=== PATIENT | female | born 1995 | race Caucasian/White ===

== ENCOUNTER 2018-12-18 12:10 | Outpatient (CLI) | payer MEDICAID ==
[2018-12-18 19:05] LABS: HCG,QUALITATIVE BLOOD NEGATIVE
== END 2018-12-18 12:20 | disposition home or self-care (01) ==
LOC: LAB.N 12:10
PROVIDERS: ATTEND Physician Assistant Medical
DX: N92.1 Excessive and frequent menstruation with irregular cycle (principal)
CPT/HCPCS: 36415; 84703

== ENCOUNTER 2019-11-01 19:49 | Emergency (ER) | payer OTHER, MEDICAID ==
--- NOTE | 2019-11-01 21:06 | ED Physician Documentation ---
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 Her primary complaint is her left ankle pain. She is able to ambulate but reports that she twisted her ankle she is also complaining of left shoulder pain and lower back pain and right wrist pain she is right-hand dominant. She denies hitting her head or any loss of consciousness. Denies any syncopal episodes. Review of Systems Constitutional: reports: Reviewed and negative Eyes: reports: Reviewed and negative Ears: reports: Reviewed and negative Nose: reports: Reviewed and negative Throat: reports: Reviewed and negative Cardiac: reports: Reviewed and negative Respiratory: reports: Reviewed and negative GI: reports: Reviewed and negative : reports: Reviewed and negative Skin: reports: Reviewed and negative Musculoskeletal: reports: Other (Left ankle pain left shoulder pain lower back pain right wrist pain) Neurologic: reports: Reviewed and negative Psychiatric: reports: Reviewed and negative Endocrine: reports: Reviewed and negative Immunocompromised: reports: Reviewed and negative PD PAST MEDICAL HISTORY - Past Medical History Past Medical History: Yes Respiratory: Asthma Psych: Anxiety - Past Surgical History Past Surgical History: No - Allergies Allergies/Adverse Reactions: Allergies Allergy/AdvReac Type Severity Reaction Status Date / Time No Known Drug Allergies Allergy Verified 11/01/19 20:01 - Social History Does the pt smoke?: Yes Smoking Status: Current every day smoker Does the pt drink ETOH?: No Does the pt have substance abuse?: No - Immunizations Immunizations are current?: Yes - POLST Patient has POLST: No PD ED PE NORMAL - Vitals Vital signs reviewed: Yes - General General: Alert and oriented X 3, No acute distress, Well developed/nourished - HEENT HEENT: PERRL, Other (Atraumatic, no septal hematoma no acute missing teeth no raccoon eyes no lobo sign no signs of trauma.) - Neck Neck: Supple, no meningeal sign - Cardiac Cardiac: RRR, No murmur, Strong equal pulses - Respiratory Respiratory: No respiratory distress, Clear bilaterally - Abdomen Abdomen: Normal bowel sounds, Soft, Non tender, Non distended - Back Back: No spinal TTP - Derm Derm: Warm and dry, No rash - Extremities Extremities: No deformity, Normal ROM s pain, No edema, No calf tenderness / cord - Neuro Neuro: Alert and oriented X 3, 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 Negative calf squeeze, compartments are soft sensations intact light touch palpable DP and PT pulses able to ambulate with a normal gait there is some mild tenderness diffusely over the left shoulder but the left shoulder is without any deformity radian median ulnar motor and sensory exam are intact compartments are soft strength is 5 out of 5 bilateral upper and lower extremities full remains full range of motion of the left shoulder and passive and active range of motion of the left shoulder and in abduction abduction internal and external rotation as well as flexion extension. There is mild lumbar paraspinal tenderness palpation but no midline tenderness palpation of the cervical thoracic lumbar sacral spine. The right wrist is mildly tender but no diffuse deformity no obvious deformities radian, median ulnar motor and sensory exam are intact no pain over the anatomic snuffbox full range of motion on passive and active range of motion of the right wrist in flexion extension of the wrist radian, median ulnar motor and sensory exam are intact. Compartments are soft throughout neurovascularly intact throughout sensations intact light touch throughout. Results - Vitals Vitals: Vital Signs - 24 hr 11/01/19 11/01/19 19:58 22:48 Temperature 36.8 C Heart Rate 98 64 Respiratory 18 18 Rate Blood Pressure 137/79 H 136/88 H O2 Saturation 99 98 Oxygen O2 Source Room air PD MEDICAL DECISION MAKING - ED course Complexity details: considered differential (Left ankle sprain. No emergent injuries.) ED course: X-rays of the left ankle and left foot show no obvious fracture dislocation I explained this to the patient if she continues to have a worsening pain or is not improving she should have repeat x-rays and 1 week from now or CT scan. This was explained to the patient and she states she will follow-up with her primary care provider on Sunday for recheck she should rest ice compress and elevate take Tylenol or ibuprofen as needed. Departure - Departure Disposition: 01 Home, Self Care Clinical Impression: Left ankle sprain Qualifiers: Encounter type: initial encounter Involved ligament of ankle: unspecified ligament Qualified Code(s): S93.402A - Sprain of unspecified ligament of left ankle, initial encounter Condition: Stable Instructions: ED Sprain Ankle Follow-Up: your, doctor [Other] Comments: Please follow-up with your primary care provider on Sunday for recheck. Ice as needed.Take either Tylenol or ibuprofen as needed. Discharge Date/Time: 11/01/19 22:49
--- NOTE | 2019-11-01 21:52 | XRAY Report ---
PROCEDURE: Ankle 3 View LT INDICATIONS: left ankle injury TECHNIQUE: 3 views of the ankle were acquired. COMPARISON: Correlation is made with the accompanying foot plain films. FINDINGS: Bones: No fractures or dislocations. Ankle mortise is normally aligned. No suspicious bony lesions . An accessory ossicle is seen, an os trigonum. Plantar and Achilles calcaneal spurs are seen. The talar dome demonstrates an unremarkable appearance. Soft tissues: No tibiotalar joint effusion. Achilles tendon appears normal. IMPRESSION: No acute plain film abnormality is seen. Note is made of plantar and Achilles calcaneal spurs. Reviewed by: Jonathan Pearl MD on 11/01/2019 8:50 PM [facility] Approved by: Jonathan Pearl MD on 11/01/2019 8:50 PM [facility] Station ID: [id number]
--- NOTE | 2019-11-01 21:54 | XRAY Report ---
PROCEDURE: Foot 3 View LT INDICATIONS: left foot injury TECHNIQUE: 3 views of the foot were acquired. COMPARISON: Correlation is made with the accompanying ankle plain films. FINDINGS: Bones: No fractures or dislocations. No suspicious bony lesions. An accessory ossicle is seen, an os trigonum. Plantar and Achilles calcaneal spurs are seen. A minimal hallux valgus deformity is seen . Soft tissues: No tibiotalar joint effusion. Achilles tendon appears normal. IMPRESSION: No acute fractures are seen by plain film. Minimal hallux valgus deformity. Please correlate with focal tenderness. If there is point tenderness (or other clinical concern for a fracture not seen on these plain films) then please consider a dedicated CT study or a short term fo llow up plain film series for further evaluation. Plantar and Achilles calcaneal spurs can be seen. Reviewed by: Jonathan Pearl MD on 11/01/2019 8:52 PM [facility] Approved by: Jonathan Pearl MD on 11/01/2019 8:52 PM [facility] Station ID: [id number]
[2019-11-01 22:49] VITALS: BP 136/88
== END 2019-11-01 22:49 | disposition home or self-care (01) ==
LOC: ED 19:49
DX: S93.402A Sprain of unspecified ligament of left ankle, initial encounter (principal); X50.1XXA Overexertion from prolonged static or awkward postures, initial encounter; W01.0XXA Fall on same level from slipping, tripping and stumbling without subsequent striking against object, initial encounter; Y92.511 Restaurant or cafe as the place of occurrence of the external cause; Y99.0 Civilian activity done for income or pay; F17.200 Nicotine dependence, unspecified, uncomplicated
CPT/HCPCS: 1040M; 73610; 73630; 99282; 99283

== ENCOUNTER 2019-11-10 13:45 | Outpatient (CLI) | payer OTHER, MEDICAID ==
--- NOTE | 2019-11-10 17:50 | XRAY Report ---
PROCEDURE: Shoulder 3 View LT INDICATIONS: LT SHOULDER JOINT PAIN TECHNIQUE: 3 views of the shoulder were acquired. COMPARISON: None. FINDINGS: Bones: No fractures or dislocations. No suspicious bony lesions. Visualized ribs appear intact. Soft tissues: No suspicious soft tissue calcifications. IMPRESSION: No fracture. No osseous lesion. If there is continued clinical concern for pathology, then repeat milka in film radiographs (7-10 days) or advanced imaging (CT, MR, bone scan) should be considered for furt her evaluation. Reviewed by: Niyah Sauer MD, PhD on 11/10/2019 5:48 PM PDT Approved by: Niyah Sauer MD, PhD on 11/10/2019 5:48 PM PDT Station ID: [id number]
== END 2019-11-10 13:46 | disposition home or self-care (01) ==
LOC: DI 13:45
PROVIDERS: ATTEND Family Medicine
DX: M25.512 Pain in left shoulder (principal)

== ENCOUNTER 2019-11-25 16:48 | Outpatient (CLI) | payer MEDICAID ==
[2019-11-25 18:52] LABS: PROLACTIN 15.47 ng/mL
[2019-11-25 19:14] LABS: FOLLICLE STIMULATING HORMONE 8.04 mIU/mL
[2019-11-25 19:15] LABS: LUTEINIZING HORMONE 8.11 mIU/mL
== END 2019-11-25 16:49 | disposition home or self-care (01) ==
LOC: LAB.WCP 16:48
PROVIDERS: ATTEND Nurse Practitioner Family
DX: N92.6 Irregular menstruation, unspecified (principal)
CPT/HCPCS: 36415; 83001; 83002; 84144; 84146; 84443

== ENCOUNTER 2020-09-26 13:57 | Emergency (ER) | payer MEDICAID ==
[2020-09-26 14:06] VITALS: BP 136/79
--- NOTE | 2020-09-26 14:09 | ED Physician Documentation ---
History of Present Illness - Stated complaint Stated Complaint: growth on rearend - Chief complaint Chief Complaint: General - History obtained from History obtained from: Patient - Additonal information Additional information: About a day of a painful lump on the rectum. She is never had anything like this before. Not constipated. No major health issues. Review of Systems Constitutional: reports: Reviewed and negative Eyes: reports: Reviewed and negative Ears: reports: Reviewed and negative Nose: reports: Reviewed and negative Throat: reports: Reviewed and negative PD PAST MEDICAL HISTORY - Past Medical History Respiratory: Asthma Psych: Anxiety - Past Surgical History Past Surgical History: No - Present Medications Home Medications: Ambulatory Orders Medication Instructions Recorded Confirmed Hydrocortisone [Anusol-Hc] 1 gm RC QID #30 gm 09/26/20 - Allergies Allergies/Adverse Reactions: Allergies Allergy/AdvReac Type Severity Reaction Status Date / Time No Known Drug Allergies Allergy Verified 09/26/20 14:06 - Social History Does the pt smoke?: Yes Smoking Status: Current every day smoker Does the pt drink ETOH?: No Does the pt have substance abuse?: No - Immunizations Immunizations are current?: Yes - POLST Patient has POLST: No PD ED PE NORMAL - Vitals Vital signs reviewed: Yes - General General: Alert and oriented X 3, No acute distress - Abdomen Abdomen: Normal bowel sounds, Soft, Non tender - Female Female : Other (Exam done with Gamaliel GREENWOOD present and chaperoning. On the left side she has an acutely thrombosed hemorrhoid.) Results - Vitals Vitals: Vital Signs - 24 hr 09/26/20 14:01 Temperature 36.5 C Heart Rate 70 Respiratory 15 Rate Blood Pressure 136/79 H O2 Saturation 99 Oxygen O2 Source Room air Procedures - General procedure General procedure: After verbal informed consent with specific discussion of discussion of risks and benefits including but not limited to bleeding and infection the rectum area was prepped with iodine and base of the thrombosed hemorrhoid was anesthetized with lidocaine and epinephrine, elliptical incision was made in the most fluctuant part of it and clot was expressed. Patient tolerated very well. Departure - Departure Disposition: 01 Home, Self Care Clinical Impression: Thrombosed hemorrhoids Condition: Good Record reviewed to determine appropriate education?: Yes Instructions: Sitz Bath, ED Hemorrhoids Follow-Up: Meir Boykin MD [Provider Admit Priv/Credential] - Prescriptions: Hydrocortisone [Anusol-Hc] 1 gm RC QID #30 gm Comments: Do sitz bath's at least 2-3 times a day as per the instructions enclosed. Return for new or worsening symptoms. Follow-up with the surgeon for recheck within the week, calling tomorrow for an appointment. Forms: Activity restrictions
[2020-09-26] MEDS ORDERED: LIDOCAINE 1%-EPI 1:100000 20 ML MDV SUBQ STA (14:21)
== END 2020-09-26 14:42 | disposition home or self-care (01) ==
LOC: ED 13:57
DX: K64.5 Perianal venous thrombosis (principal); F17.200 Nicotine dependence, unspecified, uncomplicated
CPT/HCPCS: 46083

== ENCOUNTER 2020-12-25 12:20 | Outpatient (CLI) | payer MEDICAID ==
--- NOTE | 2020-12-25 16:01 | XRAY Report ---
PROCEDURE: Chest 2 View X-Ray INDICATIONS: ACUTE UPPER RESP INFECTION TECHNIQUE: 2 view(s) of the chest. COMPARISON: None. FINDINGS: Surgical changes and devices: None. Lungs and pleura: No pleural effusions or pneumothorax. Lungs are clear. Mediastinum: Mediastinal contours are normal. Heart size is normal. Bones and chest wall: No suspicious bony abnormalities. Soft tissues appear unremarkable. IMPRESSION: Chest plain film study within normal limits, without focal infiltrates. Reviewed by: Jonathan Pearl MD on 12/25/2020 2:59 PM [facility] Approved by: Jonathan Pearl MD on 12/25/2020 2:59 PM [facility] Station ID: [id number]
== END 2020-12-25 12:21 ==
LOC: DI.N 12:20
PROVIDERS: ATTEND Nurse Practitioner
DX: J06.9 Acute upper respiratory infection, unspecified (principal); Z20.822 Contact with and (suspected) exposure to COVID-19

== ENCOUNTER 2020-12-26 09:25 | Emergency (ER) | payer MEDICAID ==
[2020-12-26 09:58] LABS: BASOPHILS # (AUTO) 0.1 10^3/uL (0.0-0.1); BASOPHILS % (AUTO) 0.5 %; EOSINOPHILS % (AUTO) 7.1 %; HCT - HEMATOCRIT 38.9 % (37.0-47.0); HGB - HEMOGLOBIN 13.1 g/dL (12.0-16.0); LYMPHOCYTES # (AUTO) 2.5 10^3/uL (1.5-3.5); LYMPHOCYTES % (AUTO) 18.5 %; MEAN CORPUSCULAR HEMOGLOBIN 29.8 pg (27.0-31.0); MEAN CORPUSCULAR HGB CONC 33.7 g/dL (32.0-36.0); MEAN CORPUSCULAR VOLUME 88.6 fL (81.0-99.0); MEAN PLATELET VOLUME 9.4 fL (7.9-10.8); MONOCYTES # (AUTO) 0.9 10^3/uL (0.0-1.0); MONOCYTES % (AUTO) 6.5 %; NEUTROPHILS % (AUTO) 66.7 %; PLT - PLATELET COUNT 330 10^3/uL (130-450); RED BLOOD COUNT 4.39 10^6/uL (4.20-5.40); RED CELL DISTRIBUTION WIDTH 13.5 % (12.0-15.0); WHITE BLOOD COUNT 13.4 x10^3/uL (4.8-10.8)
--- NOTE | 2020-12-26 10:08 | ED Physician Documentation ---
PD HPI ABD PAIN - Stated complaint Stated Complaint: ABD PX - Chief complaint Chief Complaint: Abd Pain - History obtained from History obtained from: Patient - History of Present Illness Timing - onset: Yesterday Timing - duration: Days (2) Timing - details: Intermittant Quality: Cramping, Aching, Pain Location: RLQ, Suprapubic Radiation: No: Right flank Improved by: No: Laying still Worsened by: No: Moving, Breathing, Palpation Associated symptoms: No: Fever, Nausea, Vomiting, Dysuria, Loss of appetite, Vaginal bleeding, Vaginal dc Similar symptoms before: Has not had sx before Recently seen: Not recently seen Review of Systems Constitutional: denies: Fever, Chills Nose: denies: Rhinorrhea / runny nose, Congestion Throat: denies: Sore throat Respiratory: denies: Cough GI: reports: Abdominal Pain, Nausea. denies: Vomiting, Diarrhea : reports: Other (not sexually active for several months). denies: Dysuria, Discharge, Vaginal bleeding, Missed period Endocrine: denies: Weight loss, Weight gain PD PAST MEDICAL HISTORY - Past Medical History Past Medical History: Yes Cardiovascular: None Respiratory: Asthma Neuro: None Endocrine/Autoimmune: None GI: None [employer]PORATE TRAVEL EXPERT: Ovarian cysts : None HEENT: None Psych: Anxiety Musculoskeletal: None Derm: None - Past Surgical History Past Surgical History: No - Present Medications Home Medications: Ambulatory Orders Medication Instructions Recorded Confirmed Albuterol Sulfate [Proair Hfa 1 - 2 puffs INH Q4H PRN 12/26/20 12/26/20 Inhaler] predniSONE [Deltasone] 40 mg PO DAILY 12/26/20 12/26/20 - Allergies Allergies/Adverse Reactions: Allergies Allergy/AdvReac Type Severity Reaction Status Date / Time No Known Drug Allergies Allergy Verified 12/26/20 09:28 - Social History Does the pt smoke?: No Smoking Status: Former smoker Does the pt drink ETOH?: No Does the pt have substance abuse?: No - Immunizations Immunizations are current?: Yes - POLST Patient has POLST: No PD ED PE NORMAL - Vitals Vital signs reviewed: Yes - General General: Alert and oriented X 3, No acute distress, Well developed/nourished - Neck Neck: Supple, no meningeal sign, No adenopathy - Cardiac Cardiac: RRR, No murmur - Respiratory Respiratory: Clear bilaterally - Abdomen Abdomen: Normal bowel sounds, Soft, Non distended, No organomegaly, Other (mild tender RLQ/suprapubic area without guarding nor percussion tender. No CVA tenderness. ) Results - Vitals Vitals: Vital Signs - 24 hr 12/26/20 12/26/20 12/26/20 09:29 10:07 12:00 Temperature 36.4 C L Heart Rate 72 86 93 Respiratory 18 18 17 Rate Blood Pressure 141/78 H 126/70 151/99 H O2 Saturation 98 98 100 Oxygen O2 Source Room air - Labs Labs: Laboratory Tests 12/26/20 12/26/20 12/26/20 09:50 09:50 10:36 WBC 13.4 H RBC 4.39 Hgb 13.1 Hct 38.9 MCV 88.6 MCH 29.8 MCHC 33.7 RDW 13.5 Plt Count 330 MPV 9.4 Neut # (Auto) 9.0 H Lymph # (Auto) 2.5 Ware # (Auto) 0.9 Eos # (Auto) 1.0 H Baso # (Auto) 0.1 Absolute Nucleated RBC 0.00 Nucleated RBC % 0.0 Sodium 139 Potassium 4.0 Chloride 108 Carbon Dioxide 22 Anion Gap 9.0 BUN 7 Creatinine 0.6 Estimated GFR (MDRD) 121 Glucose 97 Calcium 9.3 Total Bilirubin 0.4 AST 14 ALT 19 Alkaline Phosphatase 64 Total Protein 7.2 Albumin 3.4 Globulin 3.8 Albumin/Globulin Ratio 0.9 L Lipase 22 Urine Color YELLOW Urine Clarity CLEAR Urine pH 7.0 Ur Specific [place] 1.025 Urine Protein NEGATIVE Urine Glucose (UA) NEGATIVE Urine Ketones NEGATIVE Urine Occult Blood NEGATIVE Urine Nitrite NEGATIVE Urine Bilirubin NEGATIVE Urine Urobilinogen 0.2 (NORMAL) Ur Leukocyte Esterase NEGATIVE Ur Microscopic Review NOT INDICATED Urine Culture Comments NOT INDICATED Urine HCG, Qual POSITIVE - Rads (name of study) OB U/S Radiology: Prelim report reviewed (IUP 22 wks WEGA with good heart rate and movement. ), See rad report PD MEDICAL DECISION MAKING - ED course Complexity details: reviewed results (She is 22 wks . UA is good. U/S otherwise good. Consider round ligament pain on right. Clinically low suspicion for appendix at this point. ), re-evaluated patient, considered differential (consider ovarian cyst, ectopic, UTI, and also GI such as appendix though exam is low suspicion for that. ), d/w patient Departure - Departure Disposition: 01 Home, Self Care Clinical Impression: Lower abdominal pain Qualifiers: Weeks of gestation: 22 weeks Qualified Code(s): Z3A.22 - 22 weeks gestation of Condition: Stable Record reviewed to determine appropriate education?: Yes Instructions: ED Pelvic Pain Preg UKO 2 or 3 Tri Follow-Up: Claudia Marks MD [Provider Admit Priv/Credential] - Comments: Your ultrasound shows you are 22 weeks . Your urine test is clear without any signs of infection. The ultrasound did not show any ovarian prob lems. Consideration for your pain can be stretching of the ligaments of the uterus called round ligament pain. Clinically seems less likely to be appendicitis or such. Tylenol every 4-6 hours if needed for pains. Call the [facility] office to arrange a initial appointment for care. Stay well-hydrated. Return if worsening pain or associated fever, vomiting, bloody stools or diarrhea or other concerns. Discharge Date/Time: 12/26/20 12:11
[2020-12-26 10:10] LABS: ALBUMIN 3.4 g/dL (3.2-5.5); ALBUMIN/GLOBULIN RATIO 0.9 (1.0-2.2); BILIRUBIN,TOTAL 0.4 mg/dL (0.2-1.0); CALCIUM 9.3 mg/dL (8.5-10.3); CREATININE 0.6 mg/dL (0.4-1.0); TOTAL PROTEIN 7.2 g/dL (6.7-8.2)
[2020-12-26] MEDS ORDERED: KETOROLAC 30 MG/ML VIAL IVP STA (10:30)
[2020-12-26 10:50] LABS: BILIRUBIN,URINE NEGATIVE (NEGATIVE); GLUCOSE, URINE (UA) NEGATIVE (NEGATIVE); KETONES,URINE (UA) NEGATIVE (NEGATIVE); LEUKOCYTE ESTERASE, URINE NEGATIVE (NEGATIVE); NITRITE,URINE NEGATIVE (NEGATIVE); OCCULT BLOOD,URINE NEGATIVE (NEGATIVE); PROTEIN,URINE NEGATIVE (NEGATIVE); UROBILINOGEN,URINE 0.2 (NORMAL) E.U./dL (NORMAL)
[2020-12-26 10:51] LABS: CLARITY,URINE CLEAR (CLEAR); HCG UR QUAL POSITIVE
[2020-12-26] MEDS ORDERED: ACETAMINOPHEN 325 MG TABLET PO STA (12:01)
[2020-12-26 12:02] VITALS: BP 151/99
--- NOTE | 2020-12-26 12:25 | Ultrasound Report ---
PROCEDURE: OB F/U or Repeat INDICATIONS: +PREG TEST.RT PELVIC PX OUTSIDE/PRIOR DATING DATA: Last menstrual period (LMP): 12/14/2020 LMP-based estimated date of delivery (ALFONSO): 09/20/2021. TECHNIQUE: Real-time scanning was performed of the fetus, with image documentation and biometric measurements. Endovaginal scanning: No COMPARISON: None. FINDINGS: General: A single living intrauterine gestation is present. Presentation: Vertex Placenta: Placental position is left fundal, without previa. Amniotic fluid index: 15.7 cm heart rate: 158 beats per minute. Maternal cervical canal: 2.5 cm long; normal length is 2.5 cm or more. biometrics: Biparietal diameter: 53 mm; 22 weeks 0 days Head circumference: 195 mm; 21 weeks 5 days Abdominal circumference: 172 mm; 22 weeks 1 day Femur length: 39 mm; 22 weeks 4 days Estimated gestational age from initial scan: not applicable. Composite gestational age from present scan: 22 weeks 1 day Estimated weight and percentile: 488 g Measurement variability in biometric dating: +/- 10 days from 12-20 weeks gestation, +/- 2 weeks from 20-30 weeks gestation, +/- 3 weeks at 30 weeks gestation or more. Other: Not applicable. IMPRESSION: 1. Single living intrauterine gestation. Reviewed by: Carlos Edmondson MD on 12/26/2020 12:23 PM PDT Approved by: Carlos Edmondson MD on 12/26/2020 12:23 PM PDT Station ID: [id number]
== END 2020-12-26 12:11 | disposition home or self-care (01) ==
LOC: ED 09:25
DX: O26.892 Other specified pregnancy related conditions, second trimester (principal); R10.31 Right lower quadrant pain; Z3A.22 22 weeks gestation of pregnancy; Z87.891 Personal history of nicotine dependence
CPT/HCPCS: 36415; 76816; 80053; 81003; 81025; 83690; 85025; 96374; 99283; 99284; A9270; 81001; 87086

== ENCOUNTER → 2020-12-31 | Outpatient (CLI) | payer MEDICAID ==
[2020-12-31 17:29] LABS: BILIRUBIN,URINE NEGATIVE (NEGATIVE); GLUCOSE, URINE (UA) NEGATIVE (NEGATIVE); KETONES,URINE (UA) TRACE mg/dL (NEGATIVE); LEUKOCYTE ESTERASE, URINE NEGATIVE (NEGATIVE); NITRITE,URINE POSITIVE (NEGATIVE); OCCULT BLOOD,URINE NEGATIVE (NEGATIVE); PROTEIN,URINE NEGATIVE (NEGATIVE); UROBILINOGEN,URINE 0.2 (NORMAL) E.U./dL (NORMAL)
[2020-12-31 17:30] LABS: CLARITY,URINE HAZY (CLEAR)
[2020-12-31 17:45] LABS: BACTERIA,URINE Many /HPF (None Seen); CRYSTALS,URINE 11-25 Ca Oxalate /LPF; RBC,URINE 0-5 /HPF (0-5); SQUAMOUS EPITHELIAL CELL,UR FEW Squamous (<= Few); WBC,URINE 0-3 /HPF (0-5)
== END ==
LOC: LAB 08:00
PROVIDERS: ATTEND Obstetrics & Gynecology
DX: Z34.90 Encounter for supervision of normal pregnancy, unspecified, unspecified trimester (principal); Z36.89 Encounter for other specified antenatal screening
CPT/HCPCS: 81001; 87086; 87181

== ENCOUNTER 2021-01-03 16:24 | Outpatient (CLI) | payer MEDICAID ==
[2021-01-03 21:01] LABS: BASOPHILS # (AUTO) 0.1 10^3/uL (0.0-0.1); BASOPHILS % (AUTO) 0.3 %; EOSINOPHILS # (AUTO) 0.6 10^3/uL (0.0-0.7); EOSINOPHILS % (AUTO) 3.5 %; HCT - HEMATOCRIT 39.4 % (37.0-47.0); HGB - HEMOGLOBIN 12.9 g/dL (12.0-16.0); LYMPHOCYTES # (AUTO) 3.7 10^3/uL (1.5-3.5); LYMPHOCYTES % (AUTO) 23.7 %; MEAN CORPUSCULAR HEMOGLOBIN 29.5 pg (27.0-31.0); MEAN CORPUSCULAR HGB CONC 32.7 g/dL (32.0-36.0); MEAN PLATELET VOLUME 9.9 fL (7.9-10.8); MONOCYTES # (AUTO) 0.9 10^3/uL (0.0-1.0); MONOCYTES % (AUTO) 5.9 %; NEUTROPHILS # (AUTO) 10.2 10^3/uL (1.5-6.6); NEUTROPHILS % (AUTO) 65.6 %; PLT - PLATELET COUNT 424 10^3/uL (130-450); RED BLOOD COUNT 4.38 10^6/uL (4.20-5.40); RED CELL DISTRIBUTION WIDTH 13.3 % (12.0-15.0); WHITE BLOOD COUNT 15.6 x10^3/uL (4.8-10.8)
[2021-01-05 14:21] LABS: HIV AG/AB 4TH GEN NON-REACTIVE (NON-REACTIVE)
[2021-01-05 16:11] LABS: HEPATITIS B SURFACE ANTIGEN NON-REACTIVE (NON-REACTIVE)
[2021-01-05 16:12] LABS: HEPATITIS C ANTIBODY NON-REACTIVE (NON-REACTIVE)
== END 2021-01-03 16:25 | disposition home or self-care (01) ==
LOC: LAB.N 16:24
PROVIDERS: ATTEND Obstetrics & Gynecology
DX: Z34.90 Encounter for supervision of normal pregnancy, unspecified, unspecified trimester (principal); Z36.89 Encounter for other specified antenatal screening
CPT/HCPCS: 36415; 85025; 86592; 86762; 86787; 86803; 86850; 86900; 86901; 87340; 87389

== ENCOUNTER 2021-01-07 20:02 | Outpatient (CLI) | payer MEDICAID ==
--- NOTE | 2021-01-08 14:10 | Ultrasound Report ---
PROCEDURE: OB Detailed Eval INDICATIONS: SUPERVISION OF OUTSIDE/PRIOR DATING DATA: Last menstrual period (LMP): 12/14/2020. LMP-based estimated date of delivery (ALFONSO): 09/20/2021. First dating scan (date and location): 12/26/2020. Estimated date of delivery (ALFONSO) from first dating scan: 04/30/2021. The below data below was generated using the previous study generated ALFONSO of 04/30/2021 TECHNIQUE: Real-time scanning was performed of the fetus, with image documentation and biometric measurements. COMPARISON: 12/26/2020. FINDINGS: General: A single living intrauterine gestation is present. Presentation: Vertex Placenta: Placental position is fundal, without previa. Amniotic fluid index: 16.5 cm, normal for gestational age. Largest pocket measures 6.05 cm. heart rate: 153 beats per minute. Maternal cervical canal: 4.3 cm long; normal length is 2.5 cm or more. biometrics: Biparietal diameter: 5.53 cm, 22 weeks, 6 days Head circumference: 20.4 cm, 23 weeks, 0 days Abdominal circumference: 18.96 cm, 23 weeks, 5 days. Femur length: 4.09 cm, 22 weeks, 3 days. Estimated gestational age from initial scan: 23 weeks, 6 days. Composite gestational age from present scan: 23 weeks 0 day. Estimated weight and percentile: 593.2 g, 23.1%. Measurement variability in biometric dating: +/- 10 days from 12-20 weeks gestation, +/- 2 weeks from 20-30 weeks gestation, +/- 3 weeks at 30 weeks gestation or later. Anatomic survey: Neuro: Ventricles are normal at less than 10 mm. Cisterna magna is normal at 3-11 mm. Cerebellum i s normal in size and morphology. Nuchal skin fold: Normal at less than 6 mm between 14 and 20 weeks gestational age. Face: Nose and lips, facial profile are normal. Spine: No evidence for spina bifida. Heart: 4-chambered heart is present, with normal ventricular outflow tracts. Diaphragm: Diaphragm is intact. Stomach: Left-sided stomach is present. Kidneys: No hydronephrosis. Normal is less than 5 mm in 2nd trimester, less than 7 mm in 3rd trimester. Cord: 3 vessel cord has orthotopic insertion. Bladder: Normal in size. Extremities: All 4 extremities are visualized. IMPRESSION: 1. Single live intrauterine with fetus in vertex presentation. heart rate is 153 bpm. Normal amount of amniotic fluid. Normal growth. Estimated weight is at 23.1%. 2. Normal anatomic survey. Reviewed by: Doni Chen MD on 01/08/2021 2:09 PM PDT Approved by: Doni Chen MD on 01/08/2021 2:09 PM PDT Station ID: [id number]
== END 2021-01-07 20:03 | disposition home or self-care (01) ==
LOC: DI 20:02
PROVIDERS: ATTEND Obstetrics & Gynecology
DX: Z34.00 Encounter for supervision of normal first pregnancy, unspecified trimester (principal); Z36.89 Encounter for other specified antenatal screening

== ENCOUNTER 2021-01-31 16:00 | Outpatient (CLI) | payer MEDICAID | END 2021-01-31 16:01 | disposition home or self-care (01) | LOC: LAB.N 16:00 | PROVIDERS: ATTEND Obstetrics & Gynecology | DX: Z34.90 Encounter for supervision of normal pregnancy, unspecified, unspecified trimester (principal); Z36.89 Encounter for other specified antenatal screening; Z67.91 Unspecified blood type, Rh negative | CPT/HCPCS: 36415; 82950; 86850 ==

== ENCOUNTER 2021-04-05 08:00 | Outpatient (CLI) | payer MEDICAID | END 2021-04-05 23:59 | disposition home or self-care (01) | LOC: LAB.WC 08:00 | PROVIDERS: ATTEND Obstetrics & Gynecology | DX: Z34.90 Encounter for supervision of normal pregnancy, unspecified, unspecified trimester (principal); Z36.85 Encounter for antenatal screening for Streptococcus B | CPT/HCPCS: 87797 ==

== ENCOUNTER 2021-04-09 11:16 | Outpatient (CLI) | payer MEDICAID ==
--- NOTE | 2021-04-09 13:15 | Ultrasound Report ---
PROCEDURE: OB F/U or Repeat INDICATIONS: SUPERVISION NORMAL OUTSIDE/PRIOR DATING DATA: Last menstrual period (LMP): 12/14/2020. LMP-based estimated date of delivery (ALFONSO): 09/20/2021. First dating scan (date and location): 12/26/2020. Estimated date of delivery (ALFONSO) from first dating scan: 04/30/2021. The below data below was generated using the ultrasound ALFONSO of 04/30/2021 TECHNIQUE: Real-time scanning was performed of the fetus, with image documentation and biometric measurements. COMPARISON: 12/26/2020, 01/07/2021 FINDINGS: General: A single live intrauterine gestation is present. Presentation: Vertex Placenta: Placental position is fundal, without previa. Amniotic fluid index: 13.2 cm, within normal limits for gestational age. heart rate: 143 beats per minute. Maternal cervical canal: The cervix appears closed. It is not well seen. The length is not measured on this study. biometrics: Biparietal diameter: 8.6 cm equals 34 weeks 5 days Head circumference: 31.2 cm equals 34 weeks 6 days Abdominal circumference: 32.2 cm equals 36 weeks 1 day Femur length: 6.9 cm equals 35 weeks 3 days Estimated gestational age from initial scan: 37 weeks 0 days Composite gestational age from present scan: 35 weeks 2 days Estimated weight and percentile: 2733 g, 22nd percentile Measurement variability in biometric dating: +/- 10 days from 12-20 weeks gestation, +/- 2 weeks from 20-30 weeks gestation, +/- 3 weeks at 30 weeks gestation or more. Other: Not applicable. This study is limited by maternal body habitus. IMPRESSION: Somewhat lagging interval growth compared to the prior ultrasounds. The biparietal diameter is at the 10th percentile and the head circumference is at the 2nd percentile . Reviewed by: Jonathan Pearl MD on 04/09/2021 12:13 PM [facility] Approved by: Jonathan Pearl MD on 04/09/2021 12:13 PM [facility] Station ID: [id number]
== END 2021-04-09 11:17 | disposition home or self-care (01) ==
LOC: DI 11:16
PROVIDERS: ATTEND Obstetrics & Gynecology
DX: O99.213 Obesity complicating pregnancy, third trimester (principal); E66.01 Morbid (severe) obesity due to excess calories; Z3A.35 35 weeks gestation of pregnancy

== ENCOUNTER 2021-04-21 13:48 | Outpatient (CLI) | payer MEDICAID ==
[2021-04-21 14:01] LABS: HCT - HEMATOCRIT 37.6 % (37.0-47.0); MEAN CORPUSCULAR HEMOGLOBIN 30.2 pg (27.0-31.0); MEAN CORPUSCULAR HGB CONC 34.6 g/dL (32.0-36.0); MEAN CORPUSCULAR VOLUME 87.2 fL (81.0-99.0); MEAN PLATELET VOLUME 10.5 fL (7.9-10.8); RED BLOOD COUNT 4.31 10^6/uL (4.20-5.40); RED CELL DISTRIBUTION WIDTH 13.1 % (12.0-15.0); WHITE BLOOD COUNT 11.2 x10^3/uL (4.8-10.8)
[2021-04-21 14:14] LABS: ALBUMIN 3.2 g/dL (3.2-5.5); ALBUMIN/GLOBULIN RATIO 0.9 (1.0-2.2); BILIRUBIN,TOTAL 0.9 mg/dL (0.2-1.0); CALCIUM 8.9 mg/dL (8.5-10.3); CREATININE 0.7 mg/dL (0.4-1.0); POTASSIUM 4.1 mmol/L (3.5-5.0); TOTAL PROTEIN 6.7 g/dL (6.7-8.2)
== END 2021-04-21 13:49 | disposition home or self-care (01) ==
LOC: LAB 13:48
PROVIDERS: ATTEND Obstetrics & Gynecology
DX: O13.3 Gestational [pregnancy-induced] hypertension without significant proteinuria, third trimester (principal)
CPT/HCPCS: 36415; 80053; 82570; 84156; 85027

== ENCOUNTER 2021-04-22 08:06 | Outpatient (CLI) | payer MEDICAID ==
[2021-04-22 08:38] LABS: CREATININE,URINE 179.8 mg/dL; PROTEIN/CREATININE RATIO,URINE 0.1 (<=0.2)
== END 2021-04-22 08:07 | disposition home or self-care (01) ==
LOC: LAB 08:06
PROVIDERS: ATTEND Obstetrics & Gynecology
DX: O13.3 Gestational [pregnancy-induced] hypertension without significant proteinuria, third trimester (principal)
CPT/HCPCS: 82570; 84156

== ENCOUNTER 2021-04-22 08:12 | Inpatient (IN) | payer MEDICAID ==
[2021-04-22] MEDS ORDERED: miSOPROStoL 200 MCG TABLET BC PRN (08:26)
[2021-04-22] MEDS ORDERED: CARBOPROST TROMETHAMINE 250 MCG/ML AMP IM PRN (08:26)
[2021-04-22] MEDS ORDERED: miSOPROStoL 200 MCG TABLET PR PRN (08:26)
[2021-04-22] MEDS ORDERED: OXYTOCIN 10 UNIT/ML VIAL IM PRN (08:26)
[2021-04-22] MEDS ORDERED: METHYLERGONOVINE 0.2 MG/ML VIAL IM PRN (08:26)
[2021-04-22] MEDS ORDERED: TRANEXAMIC ACID IN NACL 1,000 MG/100 ML BAG IV PRN (08:26)
[2021-04-22] MEDS ORDERED: OXYTOCIN/SODIUM CHLORIDE 500 ML IV PRN (08:26)
[2021-04-22] MEDS ORDERED: TERBUTALINE 1 MG/ML VIAL SUBQ PRN (08:26)
[2021-04-22] MEDS ORDERED: hydrALAZINE INJ 20 MG/ML VIAL IVP PRN (08:26)
[2021-04-22] MEDS ORDERED: LABETALOL 20 MG/4 ML SYRINGE IVP PRN ×2 (08:26)
[2021-04-22] MEDS ORDERED: fentaNYL 100 MCG/2 ML VIAL IVP PRN (08:26)
[2021-04-22] MEDS ORDERED: LIDOCAINE-MPF 1% 30 ML VIAL ID PRN (08:26)
[2021-04-22] MEDS ORDERED: SODIUM CHLORIDE FLUSH 0.9% 10 ML SYRINGE IVP PRN (08:26)
[2021-04-22] MEDS ORDERED: LACTATED RINGERS 1,000 ML IV SCH (09:00)
[2021-04-22] MEDS ORDERED: SODIUM CHLORIDE FLUSH 0.9% 10 ML SYRINGE IVP SCH (09:00)
--- NOTE | 2021-04-22 09:40 | HISTORY & PHYSICAL EXAMINATION ---
Admit History - Visit Reason Visit Reason: Other (Induction of labor) - : 1 Parity: 0 Risk/History: positive: induced HTN Complications This : positive: induced HTN Smoking Status: Former smoker - Mother's Labs Mother's Blood Type: positive: O Mother's RH: positive: Negative (Received rhophylac 02/07/21) GBS: positive: Group B Step Negative Rubella Status: positive: Non-immune - Other Maternal History Other Maternal History: HPI: 25-year-old G1, P0 at 38 weeks 5 days gestation by 22-week ultrasound presenting for induction of labor secondary to gestational hypertension at term she had elevated blood pressures last week and again yesterday in clinic and was advised to come today for evaluation and induction. Yesterday her labs were normal, and not concerning for preeclampsia.. She has good movement. Denies loss of fluid. No ROBERT/BV or RUQP. No vaginal bleeding. Denies nausea and vomiting. Denies urinary urgency or dysuria. All other symptoms reviewed and were negative except per HPI. Course LMP:unknown ALFONSO by LMP:unknown Initial Ultrasound date/ALFONSO by US:in ED 12/26/2020 22w1d Final ALFONSO:05/01/2021: Gestational hypertension: IOL 04/22/21. To hospital today for PIH labs. O Negative /Rubella:NON Immune VZV:Immune Genetic testing:Declined FAS: 01/08: WNL. EFW 23.1%tile. FHR 153. Normal FELISHA. Follow-up 04/05: EFW 2733 g, 22nd percentile. BPD at the 10th percentile, HC at the 2nd percentile. Glucola: 117 Influenza: 12/31 TDAP: 02/07/2021 Rhophylac : Given 02/07/2021 GBS: collected 04/05 at 36.2: NEGATIVE HSV: Denies history in self or partner. Breast pump Rx 02/07/2021 MOD: Plan for . Father the baby not involved. pp contraception:Considering OCPs pap:12/31/2020 normal Covid:Received Lee & Lee vaccine in June. POSITIVE infection 04/07/2021 PMH Asthma in childhood PSH No prior surgeries OB History SH Denies tobacco, alcohol, drugs Family History Mother: Asthma Father: Opioid addiction, bipolar disorder Paternal grandfather: Hypertension, hypercholesterolemia Uncle: Leukemia, lung cancer Allergies No known drug allergies Medications loratadine as needed vitamins Physical exam: General: Alert, oriented, no acute distress Head: Normal cephalic atraumatic Eyes: PERRLA, extraocular motions intact. Respiratory: Normal rate of respiration. No accessory muscle use, normal respiratory effort. Cardiovascular: Regular rate and rhythm Abdomen: Gravid, nontender, nondistended Extremities: Normal range of motion Neuro: Oriented x3. Normal movements Psych: Appropriate mood and affect. Normal judgment and insight SVE: 0/0/-3 FHT: 145 beats per baseline, moderate variability, accelerations present, no decelerations. [place]: Quiescent Plan 25-year-old G1, P0 at 38 weeks 5 days gestation by 22-week ultrasound admitted for induction of labor secondary to gestational hypertension Induction of labor -We will start with misoprostol 25 mcg buccal for 6 doses -Epidural at patient's request -Admit labs, anticipate AROM, dissipate Gestational hypertension - blood pressures normal today. -Labs none concerning for preeclampsia 38 weeks gestation Rh Negative Meds/Allgy - Home Medications Home Medications: Ambulatory Orders Medication Instructions Recorded Confirmed Albuterol Sulfate [Proair Hfa 1 - 2 puffs INH Q4H PRN 12/26/20 12/26/20 Inhaler] predniSONE [Deltasone] 40 mg PO DAILY 12/26/20 12/26/20 - Allergies Allergies/Adverse Reactions: Allergies Allergy/AdvReac Type Severity Reaction Status Date / Time No Known Drug Allergies Allergy Verified 12/26/20 09:28
[2021-04-22] MEDS: miSOPROStoL 100 MCG TABLET BC SCH ×4 (10:22→23:10)
--- NOTE | 2021-04-22 16:18 | PROVIDER PROGRESS NOTE ---
Labor Progress Note - Uterine Monitoring Uterine Monitoring Mode: positive: External toco Contraction Frequency (min/apart): irregular Contraction Intensity: positive: Mild Uterine Resting Tone: positive: Soft - Monitoring Monitor Mode: positive: External ultrasound Heart Rate Baseline: 135 Heart Rate Variability: positive: Moderate (6-25 bmp) Accelerations: positive: Present, 15x15 Decelerations: positive: None Strip Review: positive: Category I - Labor Progress Note Labor Progress Note/Additional Text: Patient check intermittently. Currently category 1 tracing. Has received 2 doses misoprostol and due for her third. Discussed checking cervix before subsequent dose. Patient amenable to this. Currently resting comfortably and encouraged to get rest.
[2021-04-23] MEDS: miSOPROStoL 100 MCG TABLET BC SCH ×2 (03:17→07:25)
--- NOTE | 2021-04-23 04:36 | PROVIDER PROGRESS NOTE ---
Labor Progress Note - Uterine Monitoring Uterine Monitoring Mode: positive: External toco Contraction Frequency (min/apart): Quiescent Contraction Intensity: positive: Mild to moderate Uterine Resting Tone: positive: Soft - Monitoring Monitor Mode: positive: External ultrasound Heart Rate Baseline: 125 Heart Rate Variability: positive: Moderate (6-25 bmp) Accelerations: positive: Present, 15x15 Decelerations: positive: None Strip Review: positive: Category I - Vaginal Exam Dilation (in cm): 2 Effacement (%): 30 Station: -3 - Labor Progress Note Labor Progress Note/Additional Text: Patient continue with misoprostol for labor induction. /-3 at my last check. Patient currently category 1, but has had intermittent variable decelerations throughout the evening. Fetus in contractions somewhat difficult to trace due to maternal body habitus. We will continue cervical ripening at this time.
--- NOTE | 2021-04-23 09:35 | PROVIDER PROGRESS NOTE ---
Labor Progress Note - Uterine Monitoring Uterine Monitoring Mode: positive: External toco Contraction Frequency (min/apart): irregular Contraction Intensity: positive: Moderate Uterine Resting Tone: positive: Soft - Monitoring Monitor Mode: positive: External ultrasound Heart Rate Baseline: 140 Heart Rate Variability: positive: Moderate (6-25 bmp) Accelerations: positive: Present, 15x15 Decelerations: positive: None - Vaginal Exam Dilation (in cm): 4 Effacement (%): 80 Station: -3 - Labor Progress Note Labor Progress Note/Additional Text: Patient has received 5 doses of misoprostol. Patient called complaining of increasing pain and pressure and agreed to cervical exam. She has made good cervical dilation, currently 4 cm. Contractions are present, but difficult to monitor. Patient would like some pain medication, so after fentanyl will attempt to place IUPC and FSE. Will likely switch to oxytocin 4 hours after last dose of misoprostol.
[2021-04-23] MEDS ORDERED: OXYTOCIN/SODIUM CHLORIDE 500 ML IV SCH (10:00)
[2021-04-23] MEDS ORDERED: ROPIVACAINE 0.2% 200 MG/100 ML BAG EP ONE (11:01)
[2021-04-23] MEDS ORDERED: diphenhydrAMINE INJ 50 MG/ML VIAL IVP PRN (11:33)
[2021-04-23] MEDS ORDERED: METOCLOPRAMIDE 10 MG/2 ML VIAL IVP PRN (11:33)
[2021-04-23] MEDS ORDERED: ROPIVACAINE 0.2% 200 MG/100 ML BAG EP PRN (11:33)
[2021-04-23] MEDS ORDERED: NALOXONE 0.4 MG/ML VIAL IVP PRN (11:33)
[2021-04-23] MEDS ORDERED: NALBUPHINE 10 MG/ML AMP IVP PRN (11:33)
[2021-04-23] MEDS ORDERED: ePHEDrine 50 MG/ML VIAL IVP PRN (11:33)
[2021-04-23] MEDS ORDERED: ONDANSETRON 4 MG/2 ML VIAL IVP PRN (11:33)
--- NOTE | 2021-04-23 11:33 | ANESTHESIA ---
Pre-Anesthesia VS, & Labs - Diagnosis term labor, IUP - Procedure epidural for Vital Signs: Temp Pulse Resp BP Pulse Ox 97.5 C H 64 18 130/74 100 04/23/21 07:31 04/23/21 07:31 04/22/21 10:36 04/23/21 07:31 04/23/21 07:31 Height: 5 ft 8 in Weight (kg): 128.82 kg Body Mass Index: 43.2 BMI Classification: Morbidly Obese - NPO Last Fluid Intake: t/o morning Last Food Intake: <4h - Is Patient ?: Yes - Lab Results Current Lab Results: Laboratory Tests 04/22/21 10:15: Blood Type O NEGATIVE, Antibody Screen NEGATIVE Lab results reviewed: Yes Home Medications and Allergies Active Medications Carboprost Tromethamine (Carboprost Tromethamine 250 Mcg/Ml Amp) 250 mcg IM .ONCE PRN PRN Reason: Hemorrhage Fentanyl (Fentanyl 100 Mcg/2 Ml Vial) 50 mcg IVP Q1H PRN PRN Reason: Severe Pain (score 7-10) Last Admin: 04/23/21 09:32 Dose: 50 mcg Hydralazine HCl (Hydralazine Inj 20 Mg/Ml Vial) 10 mg IVP .ONCE PRN; Protocol PRN Reason: Step 9 of Labetalol protocol Stop: 04/27/21 08:29 Oxytocin/Sodium Chloride (Pitocin/Sodium Chloride) 500 mls @ 999 mls/hr IV PRN PRN; Protocol PRN Reason: POST- HEMORR PREVENTION Tranexamic Acid (Tranexamic 1,000 Mg/100ml-Nacl) 1,000 mg in 100 mls @ 600 mls/hr IV Q30M PRN PRN Reason: EBL >1200mL and within 3hr Lactated Ringer's (Lr) 1,000 mls @ 125 mls/hr IV .Q8H ALVARO Oxytocin/Sodium Chloride (Pitocin/Sodium Chloride) 500 mls @ 2 mls/hr IV TITR ALVARO; Protocol Labetalol HCl (Labetalol 20 Mg/4 Ml Syringe) 20 - 80 mg IVP Q10M PRN; Protocol PRN Reason: SBP> or= 160 OR DBP> or= 110 Labetalol HCl (Labetalol 20 Mg/4 Ml Syringe) 20 mg IVP .ONCE PRN; Protocol PRN Reason: SBP> or= 160 OR DBP> or= 110 Methylergonovine Maleate (Methylergonovine 0.2 Mg/Ml Vial) 0.2 mg IM .ONCE PRN PRN Reason: Hemorrhage Misoprostol (Misoprostol 100 Mcg Tablet) 25 mcg BC Q4H [facility] Last Admin: 04/23/21 07:25 Dose: 25 mcg Misoprostol (Misoprostol 200 Mcg Tablet) 800 mcg SD .ONCE PRN PRN Reason: Hemorrhage Misoprostol (Misoprostol 200 Mcg Tablet) 800 mcg BC .ONCE PRN PRN Reason: Hemorrhage Oxytocin (Oxytocin 10 Unit/Ml Vial) 10 unit IM .ONCE PRN PRN Reason: Step One if no IV access. Sodium Chloride (Sodium Chloride Flush 0.9% 10 Ml Syringe) 10 ml IVP PRN PRN PRN Reason: NEEDED PER PROVIDER ORDERS Sodium Chloride (Sodium Chloride Flush 0.9% 10 Ml Syringe) 10 ml IVP Q8H [facility] Last Admin: 04/22/21 23:28 Dose: 10 ml Albuterol Sulfate [Proair Hfa Inhaler] 1 - 2 puffs INH Q4H PRN 12/26/20 predniSONE [Deltasone] 40 mg PO DAILY 12/26/20 Allergies/Adverse Reactions: Allergies Allergy/AdvReac Type Severity Reaction Status Date / Time No Known Drug Allergies Allergy Verified 12/26/20 09:28 Anes History & Medical History - Anesthetic History Anesthesia Complications: reports: No previous complications Family history of Anesthesia Complications: Denies Family history of Malignant Hyperthermia: Denies - Medical History Cardiovascular: reports: None, Hypertension (near end of ) Pulmonary: reports: Asthma Gastrointestinal: reports: None Urinary: reports: None Neuro: reports: None Musculoskeletal: reports: None Endocrine/Autoimmune: reports: None Blood Disorders: reports: None Skin: reports: None Smoking Status: Former smoker Psychosocial: reports: No issues indicated History of Cancer?: No - Obstetrical History : 1 Parity: 0 Events: reports: induced HTN Complications: reports: induced HTN Exam General: Alert, Oriented x3, Cooperative Dental: WNL Mouth Openin Fingerbreadth Neck Mobility: Normal Mallampati classification: III Thyromental Distance: 4-6 cm Respiratory: No respiratory distress Cardiovascular: Regular rate (intermittent bradycardia 50-60, resting 60-70) Neurological: Normal speech Mental/Cognitive Status: Alert/Oriented X3, Normal for patient Cognitive Status: Within normal limits Plan Anesthesia Type: Epidural Consent for Procedure(s) Verified and Reviewed: Yes Code Status: Attempt Resuscitation ASA classification: 2-Mild systemic disease Is this case an emergency?: No
--- NOTE | 2021-04-23 12:52 | ANESTHESIA PROCEDURE NOTE ---
Anesthesia Epidural Template - Patient Report Patient Reports: positive: Inadequate control (c/o sharp pain @R with contr actions, full sensation intact after 100mcg fentanyl and 8cc0.2% Ropi despite no compaints of pain @L. Discussed options and encouraged replacement.) - Other Comments Other Comments: Epidural removed with tip intact, no bleeding. New cath placed at L4-5 after prep and drape. POONAM@10, -CSF with DPE attempt x 2, cath to 17, threads easily, negative test dose. 10cc 0.2% Ropi given. Patient states feet going numb prior to returning supine. VSS, pt states pain is now gone with contractions.
--- NOTE | 2021-04-23 14:40 | PROVIDER PROGRESS NOTE ---
Labor Progress Note - Uterine Monitoring Uterine Monitoring Mode: positive: IUPC Contraction Frequency (min/apart): 2-4 - Monitoring Heart Rate Baseline: 145 Heart Rate Variability: positive: Moderate (6-25 bmp) Accelerations: positive: Present, 15x15 Decelerations: positive: Late, Intermittent (<50% x20 min) Strip Review: positive: Category I - Vaginal Exam Dilation (in cm): 9 Effacement (%): 100 Station: -1 - Labor Progress Note Labor Progress Note/Additional Text: Patient complaining of increasing pressure. Having intermittent late decelerations, but still has good variability and accelerations. Started around the time of her epidural. Category 2. Not on oxytocin. Will give 500ml fluid bolus. Currently 9 cm, will continue with expectant management.
[2021-04-23] MEDS ORDERED: CITRIC ACID/SODIUM CITRATE 15 ML UDC PO ONE (15:14)
--- NOTE | 2021-04-23 15:18 | PROVIDER PROGRESS NOTE ---
Labor Progress Note - Uterine Monitoring Uterine Monitoring Mode: positive: IUPC Contraction Frequency (min/apart): 2-4 - Monitoring Monitor Mode: positive: Spiral electrode Heart Rate Baseline: 150 Heart Rate Variability: positive: Minimal (0-5 bpm) Accelerations: positive: Absent Decelerations: positive: Late Strip Review: positive: Category II - Vaginal Exam Dilation (in cm): 8 Effacement (%): 100 Station: -1 - Labor Progress Note Labor Progress Note/Additional Text: On my current exam on her right side, I can feel 8 cm of cervix. Patient has had continued, more frequent late decelerations, now with almost every contraction. Variability is also decreasing. Over last 30 minutes, most contractions have had late decelerations. We discussed attempting to make it to a point where we can assess with a vaginal delivery via vacuum extraction, but patient is still not completely dilated nor descended enough. Fetus has not responded to maternal maneuvering and repositioning, fluid boluses, and is not on oxytocin. Discussed the risk and benefits of section section was recommended. Risks, benefits and alternatives were discussed including but not limited to infection, bleeding that may require blood products or hysterectomy for life saving measures, injury to surrounding organs including but not limited to bowel, bladder, ureters, tubes and ovaries and/or the baby. Should injury occur it could require longer/additional surgery to repair. The patient stated understanding and desired to proceed. All questions were answered posed by patient. Urgent section was called for category 2 tracing, remote from delivery.
[2021-04-23] MEDS ORDERED: ceFAZolin 3 GM in SODIUM CHLORIDE 0.9% 100ML 100 ML IV ONE (15:21)
[2021-04-23] MEDS ORDERED: AZITHROMYCIN INJ 500 MG in SODIUM CHLORIDE 0.9% 250 ML IV ONE (15:30)
[2021-04-23] MEDS ORDERED: LIDOCAINE-MPF 2% 5 ML VIAL ONE (15:33)
[2021-04-23] MEDS ORDERED: ROPIVACAINE 0.5% PF 30 ML VIAL ONE (15:33)
[2021-04-23] MEDS ORDERED: ROPIVACAINE 0.2% PF 10 ML VIAL ONE (15:33)
[2021-04-23] MEDS ORDERED: CARBOPROST TROMETHAMINE 250 MCG/ML AMP IM ONE (15:53)
[2021-04-23] MEDS ORDERED: METHYLERGONOVINE 0.2 MG/ML VIAL ONE (15:53)
[2021-04-23] MEDS ORDERED: miSOPROStoL 200 MCG TABLET ONE (15:53)
[2021-04-23] MEDS ORDERED: OXYTOCIN 10 UNIT/ML VIAL ONE (16:01)
[2021-04-23] MEDS ORDERED: ONDANSETRON 4 MG/2 ML VIAL ONE (16:08)
[2021-04-23] MEDS ORDERED: fentaNYL 100 MCG/2 ML VIAL ONE (16:19)
[2021-04-23] MEDS ORDERED: KETAMINE 500 MG/10 ML VIAL ONE (16:32)
[2021-04-23] MEDS: KETOROLAC 30 MG/ML VIAL IVP SCH ×2 (16:49→22:55)
[2021-04-23] MEDS ORDERED: PROPOFOL 200 MG/20 ML VIAL IVP ONE ×2 (16:51→17:29)
[2021-04-23] MEDS ORDERED: ACETAMINOPHEN 1,000 MG/100 ML 100 ML IV ONE (16:57)
[2021-04-23] MEDS ORDERED: KETOROLAC 30 MG/ML VIAL ONE (16:57)
[2021-04-23] MEDS ORDERED: BUPIVACAINE 0.25% PF 30 ML VIAL SUBQ ONE (17:06)
[2021-04-23] MEDS ORDERED: BUPIVACAINE 0.25% PF 30 ML VIAL ONE (17:12)
[2021-04-23] MEDS ORDERED: SODIUM CHLORIDE 0.9% 10 ML VIAL IVP ONE (17:28)
[2021-04-23] MEDS ORDERED: LACTATED RINGERS 1,000 ML IV ONE (17:37)
[2021-04-23] MEDS ORDERED: SODIUM CHLORIDE FLUSH 0.9% 10 ML SYRINGE IVP PRN (17:38)
[2021-04-23] MEDS ORDERED: OXYTOCIN/SODIUM CHLORIDE 500 ML IV PRN (17:38)
[2021-04-23] MEDS ORDERED: ONDANSETRON ODT 4 MG TABLET TL PRN (17:38)
--- NOTE | 2021-04-23 17:39 | OPERATIVE REPORT ---
Operative Report - General Admit Date: 04/23/21 Planned Procedure: primary low transverse section Pre-Op Diagnosis: Category 2 tracing remote from delivery Procedure Performed: Primary low transverse section Post Op Diagnosis: Status post primary low transverse section - Procedure Note Primary Surgeon: Chad Tirado MD Secondary Surgeon: Jazmin Moseley MD Anesthesia Provider: Adán Ely CRNA Anesthesia Technique: Epidural Pathology: None IV Fluids (mL): 1,400 Estimated Blood Loss (mL): 900 Urine Output (mL): 250 Complications: Impacted head requiring break from sterile field for vaginal hand. - Other Other Information/Narrative: Patient received misoprostol for cervical ripening and received a total of 5 doses, she denied spontaneous rupture of membranes and was noted to be progressing on her own. She progressed throughout the day, but began having intermittent late decelerations which progressed to persistent with nearly every contraction. At that point she was checked and found still to be 8 cm and high in the pelvis, and was deemed to be remote from delivery. At that point section was recommended. Risks, benefits and alternatives were discussed including but not limited to infection, bleeding that may require blood products or hysterectomy for life saving measures, injury to surrounding organs including but not limited to bowel, bladder, ureters, tubes and ovaries and/or the baby. Should injury occur it could require longer/additional surgery to repair. The patient stated understanding and desired to proceed. All questions were answered posed by patient. Prior to being taken to the OR, 3 grams of cefazolin IV was administered and the patient received 500 mg of azithromycin intraoperatively. The patient was taken to the operating room where regional anesthesia was found to be adequate. She was then prepared and draped in the usual sterile fashion in the dorsal supine position with a leftward tilt displacing the uterus. Butler was draining to gravity. SCDs were on bilateral lower extremities. A pfannenstiel skin incision was then made with the scalpel and carried through to the underlying layer of fascia. The fascia was incised in the midline and the incision extended laterally with the Payton scissors. The superior aspect of the facial incision was then grasped with the Rebekah clamps, elevated and the underlying rectus muscles dissected off sharply. Attention was then turned to the inferior aspect of this incision which in a similar fashion was grasped, elevated with the Rebekah clamps and the rectus muscle dissected off sharply. The rectus muscles were in the midline. The peritoneum identified, grasped with the pick-ups and entered sharply with the Metzenbaum scissors. The peritoneal incision was then extended superiorly and inferiorly with good visualization of the bladder but the lateral extension was tight, so the incision was extended. The bladder blade was inserted. The vesicouterine peritoneum was identified, grasped with the pick-ups, and entered sharply with Metzenbaum scissors. This incision was then extended laterally and the bladder flap created digitally. The bladder blade was reinserted. The lower uterine segment was identified and incised in a transverse fashion with the scalpel. The uterine incision was then extended bluntly laterally. Artificial rupture of membranes demonstrated clear fluid. The bladder blade was removed. The fetus was in a cephalic presentation, however the right arm presented through the hysterotomy first. This was replaced and attempt was made to deliver the hand. Due to the depth of the head into the maternal pelvis, I was unable to reach the occiput, so I asked a vaginal hand to elevate the head. Despite this I was unable to deliver the baby, so I extended the left operating field laterally through a portion of the rectus muscle. At that point I changed sides of the operating table and performed the vaginal hand with my left hand and delivering the head with my right. At that point I changed gloves and delivered the anterior shoulder followed by the posterior shoulder and remainder of the . Due to the difficult extraction, the umbilical cord was clamped times two and cut and handed off to the business english instructor. The infant was taken to the warmer for resuscitation. Cord blood gases were obtained with a cord pH of 7.176. The placenta was removed with gentle traction. The oxytocin solution was allowed to run freely in the IV fluids. The uterus was exteriorized and cleared of all clots and debris. The uterine incision was inspected and found to have an extension ring towards the left lower edge of the cervix which was repaired with a running suture of 0 Vicryl and incorporated into the hysterotomy. A second imbricating layer was performed. At that point to areas of bleeding were closed with interrupted sutures. Upon inspection, the repaired hysterotomy was found to be hemostatic. The uterus was firm and returned to the abdomen. The gutters were cleared of all clots and debris. The peritoneum was closed in a running suture of 2-0 Vicryl. The muscles were reapproximated with 2-0 Vicryl. The fascia was reapproximated with 0 Vicryl in a running fashion. The subcutaneous tissue was closed with 2-0 Vicryl in 2 layers. The skin was closed in a subcuticular fashion with 4-0 Vicryl. The patient tolerated the procedure well. Sponge, lap and needle counts were correct times three. The patient was taken to the recovery room in stable condition.
[2021-04-23] MEDS ORDERED: LACTATED RINGERS 1,000 ML IV SCH (18:00)
--- NOTE | 2021-04-23 18:10 | ANESTHESIA POST OP EVALUATION ---
Anesthesia Post Eval - Post Anesthesia Eval Vitals: Last Vital Signs Temp 36.4 C L 04/23/21 17:55 Pulse 59 L 04/23/21 17:55 Resp 16 04/23/21 17:55 BP 115/65 04/23/21 17:55 Pulse Ox 100 04/23/21 17:55 CV Function Including HR & BP: Stable Pain Control: Satisfactory Nausea & Vomiting: Negative Mental Status: Baseline Respiratory Status: Airway Patent Hydration Status: Satisfactory Anesthesia Complications: None
[2021-04-23] MEDS: oxyCODONE 5 MG TABLET PO PRN (18:49)
[2021-04-23] MEDS: cephALEXin 250 MG CAPSULE PO SCH (22:15)
[2021-04-23] MEDS: SODIUM CHLORIDE FLUSH 0.9% 10 ML SYRINGE IVP SCH (22:55)
[2021-04-24] MEDS: oxyCODONE 5 MG TABLET PO PRN ×6 (04:04→22:48)
[2021-04-24] MEDS: KETOROLAC 30 MG/ML VIAL IVP SCH ×2 (05:03→11:15)
[2021-04-24 05:56] LABS: BASOPHILS # (AUTO) 0.1 10^3/uL (0.0-0.1); BASOPHILS % (AUTO) 0.4 %; EOSINOPHILS # (AUTO) 0.1 10^3/uL (0.0-0.7); EOSINOPHILS % (AUTO) 0.7 %; HCT - HEMATOCRIT 33.1 % (37.0-47.0); HGB - HEMOGLOBIN 11.3 g/dL (12.0-16.0); LYMPHOCYTES # (AUTO) 1.7 10^3/uL (1.5-3.5); LYMPHOCYTES % (AUTO) 12.9 %; MEAN CORPUSCULAR HEMOGLOBIN 30.5 pg (27.0-31.0); MEAN CORPUSCULAR HGB CONC 34.1 g/dL (32.0-36.0); MEAN CORPUSCULAR VOLUME 89.5 fL (81.0-99.0); MEAN PLATELET VOLUME 10.5 fL (7.9-10.8); MONOCYTES # (AUTO) 1.1 10^3/uL (0.0-1.0); MONOCYTES % (AUTO) 8.3 %; NEUTROPHILS % (AUTO) 77.2 %; PLT - PLATELET COUNT 224 10^3/uL (130-450); RED CELL DISTRIBUTION WIDTH 13.3 % (12.0-15.0); WHITE BLOOD COUNT 12.9 x10^3/uL (4.8-10.8)
[2021-04-24] MEDS: cephALEXin 250 MG CAPSULE PO SCH ×3 (06:04→22:48)
--- NOTE | 2021-04-24 07:43 | Discharge Plan ---
Discharge Plan Problem Reviewed?: Yes Disposition: Home, Self Care Condition: Good Shower Restrictions: No Driving Restrictions: Yes (While on opiod pain medication) Instruction Topics: C Section Dc No Smoking: If you smoke, Please STOP! Call for help. Follow-up with: Yue Valdivia ARNP [Primary Care Provider] - Chad Tirado MD [Provider Admit Priv/Credential] -
--- NOTE | 2021-04-24 07:45 | PROVIDER PROGRESS NOTE ---
Subjective - Subjective Subjective: Subjective Patient reports she is doing well. Lochia appropriate. Denies heavy bleeding. Has not ambulated yet. Attempted previously, but left leg was still a little numb after epidural Pelvic and abdominal pain well-controlled. Tolerating oral intake. Diet: Regular. Voiding without difficulty. Passing flatus. Denies BM. Patient is bonding with baby in room Breast feeding going well. Denies feeling lightheaded, dizzy or excessively fatigued. Objective General: Alert, oriented, no apparent distress. Cardiovascular: Regular rate. Regular rhythm. Lungs: No increased work of breathing. Abdomen: Uterus firm. Below umbilicus. No guarding or rebound. Incision: Bandage in place. Assessment and Plan day 1. -Routine care -Anticipate discharge tomorrow -Remove bandage dressing later today -Encouraged ambulation today. Objective - Vital Signs/Intake & Output Vital Signs: Vital Signs x48h Temp Pulse Resp BP Pulse Ox 04/24/21 04:00 98.1 F 62 16 93/57 L 99 Intake & Output: Intake & Output 04/21/21 04/22/21 04/23/21 04/24/21 23:59 23:59 23:59 23:59 Intake Total 800 887.5 440 Output Total 670 465 Balance 800 217.5 -25 - Lab Results Fish Bones: 04/24/21 05:40 Other Labs: Lab Results x24hrs 04/24/21 Range/Units 05:40 WBC 12.9 H (4.8-10.8) x10^3/uL RBC 3.70 L (4.20-5.40) 10^6/uL Hgb 11.3 L (12.0-16.0) g/dL Hct 33.1 L (37.0-47.0) % MCV 89.5 (81.0-99.0) fL MCH 30.5 (27.0-31.0) pg MCHC 34.1 (32.0-36.0) g/dL RDW 13.3 (12.0-15.0) % Plt Count 224 (130-450) 10^3/uL MPV 10.5 (7.9-10.8) fL Neut # (Auto) 10.0 H (1.5-6.6) 10^3/uL Lymph # (Auto) 1.7 (1.5-3.5) 10^3/uL [place] # (Auto) 1.1 H (0.0-1.0) 10^3/uL Eos # (Auto) 0.1 (0.0-0.7) 10^3/uL Baso # (Auto) 0.1 (0.0-0.1) 10^3/uL Absolute Nucleated RBC 0.00 x10^3/uL Nucleated RBC % 0.0 /100WBC
[2021-04-24] MEDS: metroNIDAZOLE 250 MG TABLET PO SCH ×3 (08:01→17:10)
[2021-04-24] MEDS: ACETAMINOPHEN 500 MG TABLET PO SCH ×2 (09:32→17:10)
[2021-04-24] MEDS: DOCUSATE SODIUM 100 MG CAPSULE PO SCH ×2 (09:32→19:40)
[2021-04-24] MEDS: IBUPROFEN 600 MG TABLET PO SCH (17:44)
[2021-04-24] MEDS: SIMETHICONE CHEW 80 MG TABLET PO PRN (19:40)
[2021-04-25] MEDS: IBUPROFEN 600 MG TABLET PO SCH ×4 (00:24→21:04)
[2021-04-25] MEDS: SIMETHICONE CHEW 80 MG TABLET PO PRN ×2 (00:24→08:28)
[2021-04-25] MEDS: ACETAMINOPHEN 500 MG TABLET PO SCH ×3 (00:25→17:02)
--- NOTE | 2021-04-25 05:14 | PROVIDER PROGRESS NOTE ---
Subjective - Prog Note Date Prog Note Date: 04/25/21 Prog Note Time: 07:00 - Subjective Pt reports feeling: Improved Subjective: Subjective Patient reports she is doing well. Lochia appropriate. Denies heavy bleeding. Ambulating. Pelvic and abdominal pain well-controlled. Tolerating oral intake. Diet: Regular. Voiding without difficulty. Passing flatus. Denies BM. Patient is bonding with baby in room Breast feeding going well. Denies feeling lightheaded, dizzy or excessively fatigued. Objective General: Alert, oriented, no apparent distress. Cardiovascular: Regular rate. Regular rhythm. Lungs: No increased work of breathing. Abdomen: Uterus firm. Below umbilicus. No guarding or rebound. Incision: Clean, dry, and intact. Assessment and Plan day 2. -Routine care -Anticipate discharge tomorrow Objective - Vital Signs/Intake & Output Vital Signs: Vital Signs x48h Temp Pulse Resp BP 04/25/21 02:00 208.2 F H 75 20 94/67 Intake & Output: Intake & Output 04/22/21 04/23/21 04/24/21 04/25/21 23:59 23:59 23:59 23:59 Intake Total 800 887.5 440 Output Total 670 1340 Balance 800 217.5 -900 - Lab Results Fish Bones: 04/24/21 05:40 Other Labs: Lab Results x24hrs 04/24/21 Range/Units 05:40 WBC 12.9 H (4.8-10.8) x10^3/uL RBC 3.70 L (4.20-5.40) 10^6/uL Hgb 11.3 L (12.0-16.0) g/dL Hct 33.1 L (37.0-47.0) % MCV 89.5 (81.0-99.0) fL MCH 30.5 (27.0-31.0) pg MCHC 34.1 (32.0-36.0) g/dL RDW 13.3 (12.0-15.0) % Plt Count 224 (130-450) 10^3/uL MPV 10.5 (7.9-10.8) fL Neut # (Auto) 10.0 H (1.5-6.6) 10^3/uL Lymph # (Auto) 1.7 (1.5-3.5) 10^3/uL [place] # (Auto) 1.1 H (0.0-1.0) 10^3/uL Eos # (Auto) 0.1 (0.0-0.7) 10^3/uL Baso # (Auto) 0.1 (0.0-0.1) 10^3/uL Absolute Nucleated RBC 0.00 x10^3/uL Nucleated RBC % 0.0 /100WBC
[2021-04-25] MEDS: SODIUM CHLORIDE FLUSH 0.9% 10 ML SYRINGE IVP SCH ×2 (06:36→08:24)
[2021-04-25] MEDS: cephALEXin 250 MG CAPSULE PO SCH ×2 (08:23→14:38)
[2021-04-25] MEDS ORDERED: RHO(D) IMMUNE GLOBULIN 300 MCG SYRINGE IM ONE (09:08)
[2021-04-25] MEDS: metroNIDAZOLE 250 MG TABLET PO SCH ×2 (09:59→17:02)
[2021-04-25] MEDS: DOCUSATE SODIUM 100 MG CAPSULE PO SCH ×2 (09:59→21:04)
[2021-04-25] MEDS ORDERED: MEASLES,MUMPS & RUBELLA VACC 0.5 ML VIAL SUBQ ONE (10:00)
[2021-04-26] MEDS: ACETAMINOPHEN 500 MG TABLET PO SCH ×2 (00:56→10:15)
[2021-04-26] MEDS: DOCUSATE SODIUM 100 MG CAPSULE PO SCH (08:40)
--- NOTE | 2021-04-26 09:23 | Discharge Plan ---
Discharge Plan Problem Reviewed?: Yes Disposition: Home, Self Care Condition: Good Prescriptions: Acetaminophen [Acetaminophen Extra Strength] 1,000 mg PO Q8H PRN #60 tablet PRN Reason: Pain Acetaminophen [Acetaminophen Extra Strength] 1,000 mg PO Q8H PRN #60 tablet PRN Reason: Pain Docusate Sodium 100Mg Capsule [Colace 100Mg Capsule] 100 - 200 mg PO BID PRN #60 cap PRN Reason: Constipation Docusate Sodium 100Mg Capsule [Colace 100Mg Capsule] 100 - 200 mg PO BID PRN #60 cap PRN Reason: Constipation Ibuprofen [Motrin] 600 mg PO Q6H PRN #30 tab PRN Reason: Pain Ibuprofen [Motrin] 600 mg PO Q6H PRN #60 tab PRN Reason: Pain oxyCODONE [Roxicodone] 2.5 - 5 mg PO Q4H PRN #24 tablet PRN Reason: Severe Pain oxyCODONE [Roxicodone] 2.5 - 5 mg PO Q4H PRN #24 tablet PRN Reason: Severe Pain Activity Restrictions: Additional Comments (see below) Shower Restrictions: Yes (No tub baths or hot tubs for 4 weeks) Driving Restrictions: Yes (While on opiod pain medication) Instruction Topics: C Section Dc Additional Instructions or Follow Up instructions: PELVIC REST: Nothing in the vagina for 6 weeks: No intercourse, tampons, douching. You are at high risk of uterine infection during this time frame. WARNING SIGNS: Call for: -Fever greater than 100.5 -Pain that does not improve with pain medication -Heavy bleeding in which you are soaking a pad an hour for 2 hours in a row -Incision becomes hot, hard, red, starts to open, or leaks foul smelling fluid -Pain or swelling in one leg and not the other +/- shortness of breath or chest pain LIFTING: No lifting more than 10# for 4 weeks DRIVING: No driving while on narcotics BATHING/WOUND CARE: Ok to shower. Let water run over the incision. Do not soap, scrub, or apply lotion. Pat dry with a clean towel or manuel a inspector hairspring. The surgical stickers will start to peel off and you can remove them when they do. Otherwise, the provider will remove them at your one week follow-up appointment. OK to use an unscented sanitary napkin or clean washcloth to keep the incision dry if the belly folds over the incision. DISCHARGE MEDICATIONS: Ibuprofen 600 mg by mouth every 6 hours as needed for pain Acetaminophen 500-1000 mg by mouth every 8 hours as needed for pain Docusate 100-200 mg by mouth twice a day as needed for constipation Oxycodone 2.5-5 mg by mouth every 4 hours as needed for pain No Smoking: If you smoke, Please STOP! Call for help. Follow-up with: Yue Valdivia ARNP [Primary Care Provider] - Chad Tirado MD [Provider Admit Priv/Credential] -
--- NOTE | 2021-04-26 09:25 | DISCHARGE SUMMARY ---
"Discharge Summary Admit Date: 04/22/21 Discharge Date: 04/26/21 Discharging Provider: Kendrick Condition at Discharge: Good Discharge Disposition: 01 Home, Self Care - DIAGNOSES Admission Diagnoses: IUP at 38+5 wga Gestational hypertension Discharge Diagnoses with Status of Each Condition: Same and delivery of term gestation Small for gestational age Category II tracing True knot and nuchal cord COVID exposure - HPI History of Present Illness: 25-year-old G1, P0 at 38 weeks 5 days gestation by 22-week ultrasound who presented for induction of labor secondary to gestational hypertension at term. She had elevated blood pressures last week and again on 04/21/21 in clinic and was advised to come for evaluation and induction. On 04/21/21, her labs were normal, and not concerning for preeclampsia.. She has good movement. Denies loss of fluid. No ROBERT/BV or RUQP. No vaginal bleeding. Denies nausea and vomiting. D enies urinary urgency or dysuria. All other symptoms reviewed and were negative except per HPI. Course LMP:unknown ALFONSO by LMP:unknown Initial Ultrasound date/ALFONSO by US:in ED 12/26/2020 22w1d Final ALFONSO:05/01/2021: Gestational hypertension: IOL 04/22/21. To hospital today for PIH labs. O Negative /Rubella:NON Immune VZV:Immune Genetic testing:Declined FAS: 01/08: WNL. EFW 23.1%tile. FHR 153. Normal FELISHA. Follow-up 04/05: EFW 2733 g, 22nd percentile. BPD at the 10th percentile, HC at the 2nd percentile. Glucola: 117 Influenza: 12/31 TDAP: 02/07/2021 Rhophylac : Given 02/07/2021 GBS: collected 04/05 at 36.2: NEGATIVE HSV: Denies history in self or partner. Breast pump Rx 02/07/2021 MOD: Plan for . Father the baby not involved. pp contraception:Considering OCPs pap:12/31/2020 normal Covid:Received [employer] vaccine in June. POSITIVE infection 04/07/2021 - CONSULTS | PROCEDURES Procedures: Primary low transverse for distress - HOSPITAL COURSE Hospital Course: Patient was admitted for induction of labor. Patient received misoprostol for cervical ripening and received a total of 5 doses. She denied spontaneous rupture of membranes but was noted to be progressing without need for further augmentation with pitocin. She progressed throughout the day, but began having intermittent late decelerations which progressed to persistent with nearly every contraction. At that point she was checked and found still to be 8 cm and high in the pelvis, and was deemed to be remote from delivery. At that point section was recommended. Patient underwent primary low transverse , delivering a viable female with Apgars of 2/8 and BW 2772g. Cord blood gases were obtained with a cord pH of 7.176. A nuchal cord and true knot were noted at delivery. Patient received cefazolin and azithromycin preoperatively and received 48 hours of ant ibiotics during the postoperative period given concerns regarding possible contamination of the sterile field during deliver as a vaginal hand was needed to elevate the head form the pelvis. Post-operative course was uncomplicated. However, the patient's delivery support person was noted to have COVID and decompensated during the patient's stay. Support person was admitted to the hospital for complications related to COVID infection. Patient is O negative and rubella non-immune. Rhogam and MMR given prior to discharge on 04/25/21 at 10:49 am. By POD#2, patient was meeting goals for discharge and was discharged to home. - ALLERGIES Allergies/Adverse Reactions: Allergies Allergy/AdvReac Type Severity Reaction Status Date / Time No Known Drug Allergies Allergy Verified 12/26/20 09:28 - MEDICATIONS Home Medications: Ambulatory Orders Medication Instructions Recorded Confirmed Albuterol Sulfate [Proair Hfa 1 - 2 puffs INH Q4H PRN 12/26/20 12/26/20 Inhaler] predniSONE [Deltasone] 40 mg PO DAILY 12/26/20 12/26/20 Acetaminophen [Acetaminophen Extra 1,000 mg PO Q8H PRN #60 tablet 04/24/21 Strength] Docusate Sodium 100Mg Capsule 100 - 200 mg PO BID PRN #60 cap 04/24/21 [Colace 100Mg Capsule] Ibuprofen [Motrin] 600 mg PO Q6H PRN #30 tab 04/24/21 oxyCODONE [Roxicodone] 2.5 - 5 mg PO Q4H PRN #24 tablet 04/24/21 Acetaminophen [Acetaminophen Extra 1,000 mg PO Q8H PRN #60 tablet 04/26/21 Strength] Docusate Sodium 100Mg Capsule 100 - 200 mg PO BID PRN #60 cap 04/26/21 [Colace 100Mg Capsule] Ibuprofen [Motrin] 600 mg PO Q6H PRN #60 tab 04/26/21 oxyCODONE [Roxicodone] 2.5 - 5 mg PO Q4H PRN #24 tablet 04/26/21 - PHYSICAL EXAM AT DISCHARGE General Appearance: positive: No acute distress Neck: positive: Nml inspection Respiratory: positive: No respiratory distress Cardiovascular: positive: Other (RR) Peripheral Pulses: positive: 2+ Abdomen: positive: Non-tender, Other (Incision with steris, CDI, FF below umbi) Extremities: positive: Non-tender, No pedal edema Neurologic/Psychiatric: positive: Oriented x3 - LABS Result Diagrams: 04/24/21 05:40 - FOLLOW UP Follow Up: [address] Tirado - TIME SPENT Time Spent in Discharge (Minutes): 30"
[2021-04-26 09:28] VITALS: BP 133/67
[2021-04-26] MEDS: IBUPROFEN 600 MG TABLET PO SCH (10:16)
--- NOTE | 2021-04-26 14:42 | Labor Flowsheet ---
Labor Flowsheet Datetime Report Generated by CPN: 04/26/2021 14:42 Datetime: 04/26/2021 09:11 VITAL SIGNS NBP Sys/Lashanda/Mean (mmHg): 133 : 67 : 79 Pulse: 65 Datetime: 04/26/2021 00:55 SpO2 (%): 99 Datetime: 04/23/2021 19:40 Stage of : Membranes Ruptured Date/Time: 04/23/2021 07:13 Amniotic Fluid Odor: Normal Datetime: 04/23/2021 19:01 PAIN Pain Scale: 3 Datetime: 04/23/2021 18:27 Pain Assessment Comments: Ice pack to incision Datetime: 04/23/2021 15:42 Frequency (min): 2-4 Duration (sec): 80-110 Vining Units (mmHg): 210 ASSESSMENT A Monitor Mode: External US FHR Baseline Rate : 150 Variability: Moderate 6-25 bpm Accelerations: None Decelerations: Late; Variable Category: Category II Patient Care Comments: Monitors disconnected for transport to OR for c/s Datetime: 04/23/2021 15:40 LaborFlag: Antepartum Datetime: 04/23/2021 15:30 UTERINE ACTIVITY Monitor Mode: Internal Quality: Strong Pattern: Normal: <= 5 Contractions in 10 Minutes Resting Tone (Palpate): Relaxed Datetime: 04/23/2021 15:12 COMMUNICATION Communication: Call/Page Placed to Provider Provider Notified (Name): CREATIVE RECRUITER Ely Communication Comments: Requested provider to bedside for urgent c/s Datetime: 04/23/2021 14:56 Patient Position/Activity: Right Lateral Datetime: 04/23/2021 14:53 Provider Reviewed Strip: Yes Datetime: 04/23/2021 14:50 Actions for Decelerations: Side to Side; IV Bolus VAGINAL EXAM Dilatation (cm): 8.0 Exam by: Dr. Celestino Datetime: 04/23/2021 14:31 Effacement (%): 100 Station: -1 Datetime: 04/23/2021 13:27 I/O Interventions: Butler Cath Inserted Datetime: 04/23/2021 13:00 Comments: contraction coupling noted Datetime: 04/23/2021 12:37 Epidural Procedure: Loading Dose Datetime: 04/23/2021 12:22 PROCEDURE TIME OUT Procedure Verify: Correct Patient Position ANESTHESIA Anesthesia Plans: Epidural Epidural Positioning: Sitting Anesthesia Comments: CREATIVE RECRUITER Ely @ bedside for epidural replacement Datetime: 04/23/2021 11:53 Epidural Procedure Other: Redose Datetime: 04/23/2021 11:11 Temperature (C): 36.6 Temperature Route: Oral Datetime: 04/23/2021 10:52 Monitor Interventions for FHR: FSE Applied Datetime: 04/23/2021 10:51 Monitor Interventions for UA: IUPC Inserted Datetime: 04/23/2021 10:32 Pain Coping: Requesting Pain Medication or Epidural Datetime: 04/23/2021 10:10 Pain Presence: Intermittent Pain Type: Cramping; Contraction Pain Location: Abdomen Datetime: 04/23/2021 09:32 MEDICATIONS Analgesics/Sedatives: Fentanyl (mcg) @ (Annotations: 50mcg) Datetime: 04/23/2021 08:30 Contraction Comments: no contractions observed Datetime: 04/23/2021 07:29 Respirations: 20 Datetime: 04/23/2021 07:25 Cervical Ripening Agents: Cytotec @ (Annotations: 25mcg ) Datetime: 04/23/2021 07:13 Membrane Status: Ruptured Membranes Rupture Method: Spontaneous Amniotic Fluid Color: Clear Amniotic Fluid Amount: Moderate Nitrazine: Positive Datetime: 04/23/2021 07:00 PATIENT CARE Oxygen Method: Room Air Datetime: 04/23/2021 01:08 Pain Relief Measures: Comfort Measures Comfort Measures: Breathing/Relaxation Datetime: 04/22/2021 22:00 FHR Baseline Changes: Return to Previous Baseline Datetime: 04/22/2021 20:02 DTR's/Clonus: DTRs 1+; No Clonus Datetime: 04/22/2021 19:27 MATERNAL ASSESSMENT Level of Consciousness: Alert Headache: Denies Breath Sounds, Left: Clear and Equal Breath Sounds, Right: Clear and Equal Nausea/Vomiting: Denies RUQ Epigastric Pain: Denies Datetime: 04/22/2021 12:00 Notification Reason: Other
== END 2021-04-26 14:05 | disposition home or self-care (01) | DRG 788 ==
LOC: WFO 08:12 → FBP 08:14 → WFO 08:25 → FBP 08:26 → OBSVTOIN 04-23 12:27
PROVIDERS: ADMIT Obstetrics & Gynecology; ATTEND Obstetrics & Gynecology
PROC: 10D00Z1 Extraction of Products of Conception, Low, Open Approach (ICD-10-PCS; principal; 2021-04-23 15:45)
DX: O13.4 Gestational [pregnancy-induced] hypertension without significant proteinuria, complicating childbirth (principal); O76 Abnormality in fetal heart rate and rhythm complicating labor and delivery; O69.2XX0 Labor and delivery complicated by other cord entanglement, with compression, not applicable or unspecified; O36.5930 Maternal care for other known or suspected poor fetal growth, third trimester, not applicable or unspecified; Z3A.38 38 weeks gestation of pregnancy; Z37.0 Single live birth; Z20.822 Contact with and (suspected) exposure to COVID-19; O99.214 Obesity complicating childbirth; E66.01 Morbid (severe) obesity due to excess calories; Z87.891 Personal history of nicotine dependence
CPT/HCPCS: 36415; 82570; 84156; 85025; 86850; 86900; 86901; 96374; A9270; G0378; J0131; J2210; J7120; 82803

== ENCOUNTER 2021-06-10 18:21 | Emergency (ER) | payer MEDICAID ==
[2021-06-10] MEDS ORDERED: IOVERSOL 320 100 ML VIAL IVP ONE (18:51)
[2021-06-10 18:58] LABS: BASOPHILS # (AUTO) 0.1 10^3/uL (0.0-0.1); BASOPHILS % (AUTO) 0.5 %; EOSINOPHILS # (AUTO) 0.5 10^3/uL (0.0-0.7); HCT - HEMATOCRIT 38.1 % (37.0-47.0); HGB - HEMOGLOBIN 12.8 g/dL (12.0-16.0); LYMPHOCYTES # (AUTO) 3.6 10^3/uL (1.5-3.5); LYMPHOCYTES % (AUTO) 30.9 %; MEAN CORPUSCULAR HEMOGLOBIN 29.4 pg (27.0-31.0); MEAN CORPUSCULAR HGB CONC 33.6 g/dL (32.0-36.0); MEAN CORPUSCULAR VOLUME 87.6 fL (81.0-99.0); MEAN PLATELET VOLUME 9.2 fL (7.9-10.8); MONOCYTES # (AUTO) 0.9 10^3/uL (0.0-1.0); MONOCYTES % (AUTO) 7.4 %; NEUTROPHILS # (AUTO) 6.6 10^3/uL (1.5-6.6); NEUTROPHILS % (AUTO) 56.6 %; PLT - PLATELET COUNT 426 10^3/uL (130-450); RED BLOOD COUNT 4.35 10^6/uL (4.20-5.40); RED CELL DISTRIBUTION WIDTH 12.2 % (12.0-15.0); WHITE BLOOD COUNT 11.6 x10^3/uL (4.8-10.8)
[2021-06-10 19:06] LABS: ALBUMIN 4.3 g/dL (3.2-5.5); ALBUMIN/GLOBULIN RATIO 1.2 (1.0-2.2); BILIRUBIN,TOTAL 0.5 mg/dL (0.2-1.0); CALCIUM 9.2 mg/dL (8.5-10.3); CREATININE 0.9 mg/dL (0.4-1.0); POTASSIUM 3.6 mmol/L (3.5-5.0)
[2021-06-10] MEDS: IOVERSOL 320 100 ML VIAL IVP ONE (20:15)
--- NOTE | 2021-06-10 20:47 | CT Report ---
PROCEDURE: Abdomen/Pelvis W INDICATIONS: incisional area pain/swelling s/p csec CONTRAST: IV CONTRAST: Optiray 320 ml: 100 PO CONTRAST: *NO PO CONTRAST TECHNIQUE: After the administration of IV contrast, 5 mm thick sections acquired from the diaphragms to the symp hysis. 5 mm thick coronal and sagittal reformats were acquired. For radiation dose reduction, the f ollowing was used: automated exposure control, adjustment of mA and/or kV according to patient size. COMPARISON: None. FINDINGS: Image quality: Excellent. ABDOMEN: Lung bases: Lung bases are clear. Heart size is normal. Solid organs: Liver and spleen are normal in size and enhancement. Gallbladder is within normal peña its Biliary system is non dilated. Pancreas enhances normally. No adrenal nodules. Kidneys demons trate normal size and enhancement, without hydronephrosis. Peritoneum and bowel: Bowel loops demonstrate normal wall thickness and caliber. No free fluid or a ir. Appendix is visualized and is within normal limits. Nodes and vessels: No retroperitoneal or mesenteric adenopathy by size criteria. Aorta and inferior vena cava are normal in size. Miscellaneous: No ventral hernias. Postsurgical changes in anterior lower pelvic wall is seen likel y related to recent . No abdominal wall fluid collection is seen. PELVIS: Genitourinary: Bladder wall thickness is normal. Miscellaneous: No inguinal hernias or adenopathy. Bones: No suspicious bony lesions. No vertebral body compression fractures. IMPRESSION: 1. Post surgical changes in anterior lower pelvic wall consistent with recent section. No f luid collection is noted at insertion site or lower anterior abdominal wall muscles. 2. No peritoneal free fluid of free air. No bowel obstruction. Normal appendix. Reviewed by: Doni Chen MD on 06/10/2021 8:46 PM PDT Approved by: Doni Chen MD on 06/10/2021 8:46 PM PDT Station ID: [id number]
[2021-06-10 20:49] VITALS: BP 118/71
--- NOTE | 2021-06-10 20:56 | ED Physician Documentation ---
PD HPI ABD PAIN - Stated complaint Stated Complaint: ABD PX - Chief complaint Chief Complaint: Abd Pain - History obtained from History obtained from: Patient - Additional information Additional information: She is about 6 weeks out from a . For the last 2 weeks she has had a painful lump above and to the right of her Pfannenstiel incision. No fevers associated with it. She is breast-feeding. Review of Systems Constitutional: reports: Reviewed and negative Eyes: reports: Reviewed and negative Cardiac: reports: Reviewed and negative Respiratory: reports: Reviewed and negative PD PAST MEDICAL HISTORY - Past Medical History Cardiovascular: None, Hypertension (near end of ) Respiratory: Asthma Neuro: None Endocrine/Autoimmune: None GI: None IMPORT/EXPORT AGENT: Ovarian cysts : None HEENT: None Psych: Anxiety Musculoskeletal: None Derm: None - Past Surgical History Past Surgical History: No - Present Medications Home Medications: Ambulatory Orders Medication Instructions Recorded Confirmed Albuterol Sulfate [Proair Hfa 1 - 2 puffs INH Q4H PRN 12/26/20 12/26/20 Inhaler] predniSONE [Deltasone] 40 mg PO DAILY 12/26/20 12/26/20 Acetaminophen [Acetaminophen Extra 1,000 mg PO Q8H PRN #60 tablet 04/24/21 Strength] Docusate Sodium 100Mg Capsule 100 - 200 mg PO BID PRN #60 cap 04/24/21 [Colace 100Mg Capsule] Ibuprofen [Motrin] 600 mg PO Q6H PRN #30 tab 04/24/21 oxyCODONE [Roxicodone] 2.5 - 5 mg PO Q4H PRN #24 tablet 04/24/21 Acetaminophen [Acetaminophen Extra 1,000 mg PO Q8H PRN #60 tablet 04/26/21 Strength] Docusate Sodium 100Mg Capsule 100 - 200 mg PO BID PRN #60 cap 04/26/21 [Colace 100Mg Capsule] Ibuprofen [Motrin] 600 mg PO Q6H PRN #60 tab 04/26/21 oxyCODONE [Roxicodone] 2.5 - 5 mg PO Q4H PRN #24 tablet 04/26/21 - Allergies Allergies/Adverse Reactions: Allergies Allergy/AdvReac Type Severity Reaction Status Date / Time No Known Drug Allergies Allergy Verified 06/10/21 18:32 - Social History Does the pt smoke?: No Smoking Status: Former smoker Does the pt drink ETOH?: No Does the pt have substance abuse?: No - Immunizations Immunizations are current?: Yes - POLST Patient has POLST: No PD ED PE NORMAL - Vitals Vital signs reviewed: Yes - General General: Alert and oriented X 3, No acute distress - Abdomen Abdomen: Other (There is a palpable slightly tender lump in the subcutaneous tissue measuring about 2 cm in diameter by feel. It is well above her Pfannenstiel incision and just to the right of midline.) - Derm Derm: Normal color, Warm and dry - Neuro Neuro: Alert and oriented X 3, Normal speech Results - Vitals Vitals: Vital Signs - 24 hr 06/10/21 06/10/21 18:26 20:48 Temperature 36.1 C L 36.5 C Heart Rate 86 78 Respiratory 16 16 Rate Blood Pressure 128/73 118/71 O2 Saturation 100 99 Oxygen O2 Source Room air - Labs Labs: Laboratory Tests 06/10/21 06/10/21 18:43 18:43 WBC 11.6 H RBC 4.35 Hgb 12.8 Hct 38.1 MCV 87.6 MCH 29.4 MCHC 33.6 RDW 12.2 Plt Count 426 MPV 9.2 Neut # (Auto) 6.6 Lymph # (Auto) 3.6 H [place] # (Auto) 0.9 Eos # (Auto) 0.5 Baso # (Auto) 0.1 Absolute Nucleated RBC 0.00 Nucleated RBC % 0.0 Sodium 140 Potassium 3.6 Chloride 102 Carbon Dioxide 24 Anion Gap 14.0 H BUN 16 Creatinine 0.9 Estimated GFR (MDRD) 76 L Glucose 82 Calcium 9.2 Total Bilirubin 0.5 AST 16 ALT 19 Alkaline Phosphatase 57 Total Protein 8.0 Albumin 4.3 Globulin 3.7 Albumin/Globulin Ratio 1.2 Lipase 31 PD MEDICAL DECISION MAKING - ED course ED course: 25-year-old woman with a subcutaneous lump in the abdominal wall. It is well above her Pfannenstiel incision and quite shallow. It is most consistent with a lipoma. CT imaging was negative. Departure - Departure Disposition: 01 Home, Self Care Clinical Impression: Lipoma Qualifiers: Lipoma location: trunk Qualified Code(s): D17.1 - Benign lipomatous neoplasm of skin and subcutaneous tissue of trunk Abdominal pain Qualifiers: Abdominal location: right lower quadrant Qualified Code(s): R10.31 - Right lower quadrant pain Condition: Good Record reviewed to determine appropriate education?: Yes Instructions: ED Lipoma Follow-Up: Jammie Moseley MD [Provider Admit Priv/Credential] - Comments: I suspect this represents a lipoma, it should be unrelated to the surgery. If it continues to bother you you can have a surgeon take it out. The CAT scan did not really show an abnormality there which makes sense since the lipoma is made of fat and so it mixes in with the fat in the subcutaneous tissue of the abdominal wall. Return if needed for new or worsening symptoms. Discharge Date/Time: 06/10/21 21:10
== END 2021-06-10 21:10 | disposition home or self-care (01) ==
LOC: ED 18:21
DX: D17.1 Benign lipomatous neoplasm of skin and subcutaneous tissue of trunk (principal); R10.31 Right lower quadrant pain; Z87.891 Personal history of nicotine dependence
CPT/HCPCS: 36415; 74177; 80053; 83690; 85025; 99282; 99284; Q9967; 81001; 81003; 87086

== ENCOUNTER 2021-08-27 08:00 | Outpatient (CLI) | payer MEDICAID | END 2021-08-27 23:59 | disposition home or self-care (01) | LOC: LAB.N 08:00 | PROVIDERS: ATTEND Nurse Practitioner | DX: N39.0 Urinary tract infection, site not specified (principal) | CPT/HCPCS: 87077; 87086; 87181 ==

== ENCOUNTER 2023-06-01 15:00 | Outpatient (CLI) | payer MEDICAID, OTHER ==
--- NOTE | 2023-06-01 17:37 | XRAY Report ---
PROCEDURE: Toe(s) 2+V RT INDICATIONS: TOE PAIN, RIGHT TECHNIQUE: 3 views of the first toe(s) acquired. COMPARISON: None. FINDINGS: Bones: No displaced fracture or dislocation. A nonacute appearing bone fragment is seen adjacent to t he first metatarsal head. Bipartite medial sesamoid. Calcaneal enthesopathy. Mild degenerative change s in the midfoot. Soft tissues: No suspicious calcifications. IMPRESSION: No acute osseous abnormality. If there is high concern for further derangement, consider MRI evaluati on. Mild midfoot degenerative changes. Calcaneal enthesopathy. A nonacute appearing bone fragment is seen adjacent to the first metatarsal head. Reviewed by: Mayank Flowers MD on 06/01/2023 5:36 PM PDT Approved by: Mayank Flowers MD on 06/01/2023 5:36 PM PDT Station ID: [id number]
== END 2023-06-01 15:15 | disposition home or self-care (01) ==
LOC: DI.N 15:00
PROVIDERS: ATTEND Nurse Practitioner
DX: M19.071 Primary osteoarthritis, right ankle and foot (principal); M77.31 Calcaneal spur, right foot